=== PATIENT | female | born 1975 | race Two or more races ===

== ENCOUNTER 2020-02-02 17:13 | Inpatient (IN) | payer MEDICAID, OTHER, SELFPAY ==
[~2020-02-02] VITALS: Ht 162.6 cm; Wt 68.8 kg
[2020-02-03] MEDS ORDERED: levoFLOXacin 250 MG TAB PO ONE (01:45)
[2020-02-03 03:25] LABS: Basophils # (auto) 0 10 ^3/uL (0-0.2); Basophils % (auto) 0.2 % (0.0-2.0); Eosinophils # (auto) 0 10 ^3/uL (0-0.8); Hematocrit 45.4 % (36.0-46.0); Hemoglobin 15.3 g/dL (12.2-16.2); Lymphocytes # (auto) 0.7 10 ^3/uL (0.4-5.4); Lymphocytes % (auto) 11.4 % (10.0-50.0); Mean Corpuscular Hemoglobin 29.8 pg (28.0-32.0); Mean Corpuscular Hgb Conc. 33.8 g/dL (32.0-36.0); Mean Corpuscular Volume 88.2 fL (80.0-100.0); Monocytes # (auto) 0.6 10 ^3/uL (0-1.3); Monocytes % (auto) 9.2 % (0.0-12.0); Neutrophils % (auto) 79.2 % (37.0-80.0); Nucleated Red Blood Cells % 0.1 %; Platelet Count (auto) 272 10^3/uL (140-450); Red Blood Cells 5.15 10^6/uL (4.0-5.20); Red Cell Distribution Width 12.5 % (11.8-14.3); White Blood Cell 6.3 10^3/uL (4.4-10.8)
[2020-02-03 03:35] LABS: INR 0.98 (0.9-1.15); Partial Thromboplastin Time 29.7 sec (23.0-31.2)
[2020-02-03 03:43] LABS: Albumin 2.8 g/dL (3.4-5.0); Calcium 8.9 mg/dL (8.5-10.1); Potassium 4.1 mmol/L (3.5-5.1)
[2020-02-03 03:48] LABS: BUN/Creatinine Ratio 25.8; Bilirubin, Total 0.6 mg/dL (0.2-1.0); Total Protein 7.6 g/dL (6.4-8.2)
[2020-02-03] MEDS ORDERED: SODIUM CHLORIDE 0.9% 1,000 ML IV ONE (04:00)
[2020-02-03] MEDS ORDERED: InsuLIN REG 1unit/0.01ml Soln (100units/ml) IV ONE (04:00)
[2020-02-03] MEDS ORDERED: MORPHINE SULF INJ 2 MG/ML SYRINGE 1ML IV PRN (05:00)
[2020-02-03] MEDS ORDERED: NITROGLYCERIN 0.4 MG SL TAB SL PRN (05:00)
[2020-02-03 05:13] LABS: Magnesium 2.4 mg/dL (1.6-2.6)
[2020-02-03 05:36] LABS: CRP High Sensitivity 11.8 mg/dL (< 0.3)
[2020-02-03] MEDS: ALBUTEROL SULF HFA 90MCG INH 200DOSE IN SCH ×3 (06:00→22:00)
[2020-02-03] MEDS: ENOXAPARIN SOD 40 MG/0.4 ML SYRINGE SC SCH ×2 (09:31→22:40)
[2020-02-03] MEDS: ZINC SULFATE 220mg CAP or TAB PO SCH (09:31)
[2020-02-03] MEDS: ASCORBIC ACID 1,000 MG TAB PO SCH (09:31)
[2020-02-03] MEDS: DexAMETHasone SOD PHOS 10MG/1ML VIAL INJ IV SCH (09:31)
[2020-02-03] MEDS: FAMOTIDINE 20 MG TAB PO SCH ×2 (09:31→22:48)
[2020-02-03] MEDS: CHOLECALCIFEROL (VITD3) 2,000 UNIT CAP/TAB PO SCH (09:31)
[2020-02-03] MEDS ORDERED: DOXYCYCLINE 100MG/250ML 250 ML IV SCH (10:00)
[2020-02-03 12:36] LABS: Urine Bacteria MANY /hpf (None Seen); Urine Blood Negative /uL (Negative); Urine Mucus FEW (None Seen); Urine WBC 365 /hpf (0 - 5); Urine WBC Clumps PRESENT /hpf (None Seen)
[2020-02-03] MEDS ORDERED: DEXTROSE (50%) 50ML SYRG IV PRN (19:00)
[2020-02-03] MEDS ORDERED: REMDESIVIR PER PHARMACY IV SCH (19:15)
[2020-02-03] MEDS ORDERED: FUROSEMIDE 40 MG/4 ML VIAL IV ONE (21:30)
[2020-02-03] MEDS ORDERED: cefTRIAXone 1GM/50ML D5W 50 ML IV ONE (21:30)
[2020-02-04] VITALS (7 sets, daily range): BP systolic 98–120; BP diastolic 50–71
[2020-02-04] MEDS: ACCU-CHEK COMFORT CURVE STRIP VI SCH ×5 (00:06→23:33)
[2020-02-04] MEDS: InsuLIN REG 1unit/0.01ml Soln (100units/ml) SC SCH ×5 (00:20→23:34)
[2020-02-04] MEDS: INSULIN LANTUS (GLARGINE) 1 /0.01ml (100units/ml) SC SCH ×2 (00:21→21:46)
[2020-02-04] MEDS: ACETAMINOPHEN 325 MG TAB PO PRN ×2 (05:19→21:46)
[2020-02-04] MEDS: ALBUTEROL SULF HFA 90MCG INH 200DOSE IN SCH (06:12)
[2020-02-04 07:09] LABS: Basophils # (auto) 0 10 ^3/uL (0-0.2); Basophils % (auto) 0.1 % (0.0-2.0); Eosinophils # (auto) 0 10 ^3/uL (0-0.8); Hematocrit 41.7 % (36.0-46.0); Hemoglobin 13.9 g/dL (12.2-16.2); Lymphocytes # (auto) 0.9 10 ^3/uL (0.4-5.4); Mean Corpuscular Hemoglobin 29.3 pg (28.0-32.0); Mean Corpuscular Hgb Conc. 33.3 g/dL (32.0-36.0); Mean Corpuscular Volume 87.9 fL (80.0-100.0); Monocytes # (auto) 0.6 10 ^3/uL (0-1.3); Neutrophils # (auto) 8.6 10 ^3/uL (1.6-8.6); Neutrophils % (auto) 84.9 % (37.0-80.0); Nucleated Red Blood Cells % 0.1 %; Platelet Count (auto) 337 10^3/uL (140-450); Red Blood Cells 4.74 10^6/uL (4.0-5.20); Red Cell Distribution Width 12.3 % (11.8-14.3); White Blood Cell 10.1 10^3/uL (4.4-10.8)
[2020-02-04 07:34] LABS: Calcium 8.2 mg/dL (8.5-10.1); Potassium 3.6 mmol/L (3.5-5.1)
[2020-02-04 07:40] LABS: Albumin 2.4 g/dL (3.4-5.0); BUN/Creatinine Ratio 29.6; Bilirubin, Total 0.6 mg/dL (0.2-1.0); Total Protein 6.9 g/dL (6.4-8.2)
[2020-02-04] MEDS: ZINC SULFATE 220mg CAP or TAB PO SCH (09:54)
[2020-02-04] MEDS: DexAMETHasone SOD PHOS 10MG/1ML VIAL INJ IV SCH (09:54)
[2020-02-04] MEDS: FUROSEMIDE 40 MG/4 ML VIAL IV SCH (09:54)
[2020-02-04] MEDS: CHOLECALCIFEROL (VITD3) 2,000 UNIT CAP/TAB PO SCH (09:55)
[2020-02-04] MEDS: levoFLOXacin 250 MG TAB PO SCH (09:55)
[2020-02-04] MEDS: FAMOTIDINE 20 MG TAB PO SCH ×2 (09:55→21:46)
[2020-02-04] MEDS: ASCORBIC ACID 1,000 MG TAB PO SCH (09:55)
[2020-02-04] MEDS: ENOXAPARIN SOD 40 MG/0.4 ML SYRINGE SC SCH ×2 (09:55→21:46)
[2020-02-04] MEDS ORDERED: REMDESIVIR 200 MG in NS 210ml LOADING DOSE ADULT IV ONE (17:00)
[2020-02-04] MEDS: ALBUTEROL SULF HFA 90MCG INH 200DOSE IN PRN (21:26)
[2020-02-04] MEDS: cefTRIAXone 1GM/50ML D5W 50 ML IV SCH (21:45)
[2020-02-05 05:00] VITALS: BP 103/67
[2020-02-05] MEDS: InsuLIN REG 1unit/0.01ml Soln (100units/ml) SC SCH ×3 (05:53→17:37)
[2020-02-05] MEDS: ACCU-CHEK COMFORT CURVE STRIP VI SCH ×3 (05:53→17:36)
[2020-02-05 08:00] VITALS: BP 107/61
[2020-02-05] MEDS: ALBUTEROL SULF HFA 90MCG INH 200DOSE IN PRN (08:20)
[2020-02-05 08:21] VITALS: BP 107/61
[2020-02-05] MEDS: ZINC SULFATE 220mg CAP or TAB PO SCH (09:17)
[2020-02-05] MEDS: FUROSEMIDE 40 MG/4 ML VIAL IV SCH (09:17)
[2020-02-05] MEDS: levoFLOXacin 250 MG TAB PO SCH (09:17)
[2020-02-05] MEDS: DexAMETHasone SOD PHOS 10MG/1ML VIAL INJ IV SCH (09:17)
[2020-02-05] MEDS: CHOLECALCIFEROL (VITD3) 2,000 UNIT CAP/TAB PO SCH (09:18)
[2020-02-05] MEDS: ENOXAPARIN SOD 40 MG/0.4 ML SYRINGE SC SCH ×2 (09:18→22:25)
[2020-02-05] MEDS: ASCORBIC ACID 1,000 MG TAB PO SCH (09:18)
[2020-02-05] MEDS: FAMOTIDINE 20 MG TAB PO SCH ×2 (09:18→22:26)
[2020-02-05] MEDS ORDERED: POTASSIUM CHL 20 Meq TABLET PO ONE (09:30)
[2020-02-05] MEDS ORDERED: POTASSIUM CHL 20 Meq TABLET PO SCH (10:00)
[2020-02-05 12:30] VITALS: BP 111/64
[2020-02-05 17:00] VITALS: BP 101/64
[2020-02-05] MEDS: REMDESIVIR 100 MG in SODIUM CHL 0.9% 250 ML IV SCH (17:08)
[2020-02-05 22:00] VITALS: BP 107/66
[2020-02-05] MEDS: INSULIN LANTUS (GLARGINE) 1 /0.01ml (100units/ml) SC SCH (22:25)
[2020-02-05] MEDS: cefTRIAXone 1GM/50ML D5W 50 ML IV SCH (22:26)
[2020-02-06] MEDS: ACCU-CHEK COMFORT CURVE STRIP VI SCH ×4 (00:19→17:31)
[2020-02-06] MEDS: InsuLIN REG 1unit/0.01ml Soln (100units/ml) SC SCH ×4 (00:20→17:31)
[2020-02-06] MEDS: ALBUTEROL SULF HFA 90MCG INH 200DOSE IN PRN ×2 (01:29→17:02)
[2020-02-06 05:00] VITALS: BP 109/70
[2020-02-06 08:00] VITALS: BP 97/66
[2020-02-06 08:19] VITALS: BP 97/66
[2020-02-06] MEDS: DexAMETHasone SOD PHOS 10MG/1ML VIAL INJ IV SCH (10:11)
[2020-02-06] MEDS: POTASSIUM CHL 20 Meq TABLET PO SCH (10:12)
[2020-02-06] MEDS: ZINC SULFATE 220mg CAP or TAB PO SCH (10:12)
[2020-02-06] MEDS: FUROSEMIDE 40 MG/4 ML VIAL IV SCH (10:12)
[2020-02-06] MEDS: CHOLECALCIFEROL (VITD3) 2,000 UNIT CAP/TAB PO SCH (10:13)
[2020-02-06] MEDS: ENOXAPARIN SOD 40 MG/0.4 ML SYRINGE SC SCH ×2 (10:13→22:10)
[2020-02-06] MEDS: ASCORBIC ACID 1,000 MG TAB PO SCH (10:13)
[2020-02-06] MEDS: levoFLOXacin 250 MG TAB PO SCH (10:13)
[2020-02-06] MEDS: FAMOTIDINE 20 MG TAB PO SCH ×2 (12:04→22:10)
[2020-02-06 12:19] VITALS: BP 103/70
[2020-02-06] MEDS: REMDESIVIR 100 MG in SODIUM CHL 0.9% 250 ML IV SCH (17:18)
[2020-02-06 21:54] VITALS: BP 105/58
[2020-02-06] MEDS: INSULIN LANTUS (GLARGINE) 1 /0.01ml (100units/ml) SC SCH (22:11)
[2020-02-07] MEDS: ACCU-CHEK COMFORT CURVE STRIP VI SCH ×4 (00:27→17:45)
[2020-02-07] MEDS: InsuLIN REG 1unit/0.01ml Soln (100units/ml) SC SCH ×4 (00:28→18:03)
[2020-02-07] MEDS: TEMAZEPAM 15 MG CAP PO PRN (00:31)
[2020-02-07 05:00] VITALS: BP 124/67
[2020-02-07 07:21] LABS: Basophils # (auto) 0 10 ^3/uL (0-0.2); Eosinophils # (auto) 0.1 10 ^3/uL (0-0.8)
[2020-02-07 07:25] LABS: Basophils % (auto) 0.2 % (0.0-2.0); Eosinophils % (auto) 0.8 % (0.0-7.0); Hematocrit 44.1 % (36.0-46.0); Lymphocytes # (auto) 1.2 10 ^3/uL (0.4-5.4); Lymphocytes % (auto) 11.4 % (10.0-50.0); Mean Corpuscular Hemoglobin 30.1 pg (28.0-32.0); Mean Corpuscular Hgb Conc. 33.9 g/dL (32.0-36.0); Mean Corpuscular Volume 88.8 fL (80.0-100.0); Monocytes # (auto) 1.2 10 ^3/uL (0-1.3); Monocytes % (auto) 11.2 % (0.0-12.0); Neutrophils # (auto) 8.1 10 ^3/uL (1.6-8.6); Neutrophils % (auto) 76.4 % (37.0-80.0); Nucleated Red Blood Cells % 0.1 %; Platelet Count (auto) 496 10^3/uL (140-450); Red Blood Cells 4.97 10^6/uL (4.0-5.20); Red Cell Distribution Width 12.5 % (11.8-14.3); White Blood Cell 10.6 10^3/uL (4.4-10.8)
[2020-02-07 07:32] LABS: Potassium 3.5 mmol/L (3.5-5.1)
[2020-02-07 07:50] LABS: Albumin 2.1 g/dL (3.4-5.0); BUN/Creatinine Ratio 22.7; Bilirubin, Total 0.6 mg/dL (0.2-1.0); CRP High Sensitivity 4.27 mg/dL (< 0.3); Calcium 8.2 mg/dL (8.5-10.1); Total Protein 6.3 g/dL (6.4-8.2)
[2020-02-07 09:00] VITALS: BP 111/64
[2020-02-07] MEDS: DexAMETHasone SOD PHOS 10MG/1ML VIAL INJ IV SCH (10:45)
[2020-02-07] MEDS: POTASSIUM CHL 20 Meq TABLET PO SCH (10:45)
[2020-02-07] MEDS: CHOLECALCIFEROL (VITD3) 2,000 UNIT CAP/TAB PO SCH (10:46)
[2020-02-07] MEDS: FAMOTIDINE 20 MG TAB PO SCH ×2 (10:46→22:54)
[2020-02-07] MEDS: FUROSEMIDE 40 MG/4 ML VIAL IV SCH (10:46)
[2020-02-07] MEDS: ENOXAPARIN SOD 40 MG/0.4 ML SYRINGE SC SCH ×2 (10:46→22:55)
[2020-02-07] MEDS: ZINC SULFATE 220mg CAP or TAB PO SCH (10:46)
[2020-02-07] MEDS: levoFLOXacin 250 MG TAB PO SCH (10:46)
[2020-02-07] MEDS: ASCORBIC ACID 1,000 MG TAB PO SCH (10:46)
[2020-02-07 13:00] VITALS: BP 100/61
[2020-02-07 17:00] VITALS: BP 116/69
[2020-02-07] MEDS: REMDESIVIR 100 MG in SODIUM CHL 0.9% 250 ML IV SCH (17:00)
[2020-02-07] MEDS: ALBUTEROL SULF HFA 90MCG INH 200DOSE IN PRN (21:52)
[2020-02-07 22:00] VITALS: BP 107/67
[2020-02-07] MEDS: INSULIN LANTUS (GLARGINE) 1 /0.01ml (100units/ml) SC SCH (22:55)
[2020-02-08] VITALS (8 sets, daily range): BP systolic 92–117; BP diastolic 52–72
[2020-02-08] MEDS: ACCU-CHEK COMFORT CURVE STRIP VI SCH ×5 (00:46→23:54)
[2020-02-08] MEDS: InsuLIN REG 1unit/0.01ml Soln (100units/ml) SC SCH ×5 (00:47→23:57)
[2020-02-08] MEDS ORDERED: LORazepam 2MG/ML-1ML VIAL IV ONE (05:15)
[2020-02-08] MEDS: ALBUTEROL SULF HFA 90MCG INH 200DOSE IN PRN ×2 (07:07→21:32)
[2020-02-08 07:20] LABS: Potassium 3.5 mmol/L (3.5-5.1)
[2020-02-08 07:27] LABS: Bilirubin, Total 0.8 mg/dL (0.2-1.0); Calcium 8.3 mg/dL (8.5-10.1); Total Protein 6.3 g/dL (6.4-8.2)
[2020-02-08] MEDS: ENOXAPARIN SOD 40 MG/0.4 ML SYRINGE SC SCH ×2 (10:00→22:15)
[2020-02-08] MEDS: ZINC SULFATE 220mg CAP or TAB PO SCH (10:43)
[2020-02-08] MEDS: FUROSEMIDE 40 MG/4 ML VIAL IV SCH (10:43)
[2020-02-08] MEDS: DexAMETHasone SOD PHOS 10MG/1ML VIAL INJ IV SCH (10:43)
[2020-02-08] MEDS: POTASSIUM CHL 20 Meq TABLET PO SCH (10:44)
[2020-02-08] MEDS: FAMOTIDINE 20 MG TAB PO SCH ×2 (10:44→22:14)
[2020-02-08] MEDS: levoFLOXacin 250 MG TAB PO SCH (10:44)
[2020-02-08] MEDS: ASCORBIC ACID 1,000 MG TAB PO SCH (10:44)
[2020-02-08] MEDS: CHOLECALCIFEROL (VITD3) 2,000 UNIT CAP/TAB PO SCH (10:44)
[2020-02-08] MEDS: REMDESIVIR 100 MG in SODIUM CHL 0.9% 250 ML IV SCH (18:45)
[2020-02-08] MEDS: INSULIN LANTUS (GLARGINE) 1 /0.01ml (100units/ml) SC SCH (22:15)
[2020-02-09 05:00] VITALS: BP 123/74
[2020-02-09] MEDS: InsuLIN REG 1unit/0.01ml Soln (100units/ml) SC SCH ×4 (05:56→23:44)
[2020-02-09] MEDS: ACCU-CHEK COMFORT CURVE STRIP VI SCH ×4 (05:56→23:41)
[2020-02-09] MEDS: ALBUTEROL SULF HFA 90MCG INH 200DOSE IN PRN ×2 (08:16→23:22)
[2020-02-09 09:00] VITALS: BP 132/73
[2020-02-09] MEDS: DexAMETHasone SOD PHOS 10MG/1ML VIAL INJ IV SCH (09:14)
[2020-02-09] MEDS: FUROSEMIDE 40 MG/4 ML VIAL IV SCH (09:15)
[2020-02-09] MEDS: POTASSIUM CHL 20 Meq TABLET PO SCH (09:15)
[2020-02-09] MEDS: levoFLOXacin 250 MG TAB PO SCH (09:15)
[2020-02-09] MEDS: ZINC SULFATE 220mg CAP or TAB PO SCH (09:15)
[2020-02-09] MEDS: FAMOTIDINE 20 MG TAB PO SCH ×2 (09:15→22:13)
[2020-02-09] MEDS: ASCORBIC ACID 1,000 MG TAB PO SCH (09:16)
[2020-02-09] MEDS: ENOXAPARIN SOD 40 MG/0.4 ML SYRINGE SC SCH ×2 (09:16→22:13)
[2020-02-09] MEDS: CHOLECALCIFEROL (VITD3) 2,000 UNIT CAP/TAB PO SCH (09:16)
[2020-02-09] MEDS: guaiFENesin-DM 100/10mg/5ml SYR PO PRN (12:30)
[2020-02-09 13:00] VITALS: BP 93/60
[2020-02-09] MEDS ORDERED: IOHEXOL 350 MG/ML 100ML IJ ONE (13:18)
[2020-02-09 17:00] VITALS: BP 102/64
[2020-02-09 22:14] VITALS: BP 96/59
[2020-02-09] MEDS: BUDESONIDE (INHALATION) 180 MCG IH IN SCH (23:22)
[2020-02-10] MEDS: guaiFENesin-DM 100/10mg/5ml SYR PO PRN (04:42)
[2020-02-10 05:30] VITALS: BP 104/69
[2020-02-10] MEDS: InsuLIN REG 1unit/0.01ml Soln (100units/ml) SC SCH ×3 (05:56→17:55)
[2020-02-10] MEDS: ACCU-CHEK COMFORT CURVE STRIP VI SCH ×4 (05:56→23:59)
[2020-02-10 07:43] LABS: Basophils # (auto) 0 10 ^3/uL (0-0.2); Lymphocytes # (auto) 1.2 10 ^3/uL (0.4-5.4)
[2020-02-10 07:46] LABS: Basophils % (auto) 0.3 % (0.0-2.0); Eosinophils # (auto) 0.2 10 ^3/uL (0-0.8); Eosinophils % (auto) 1.6 % (0.0-7.0); Hematocrit 45.2 % (36.0-46.0); Hemoglobin 14.8 g/dL (12.2-16.2); Mean Corpuscular Hemoglobin 29.1 pg (28.0-32.0); Mean Corpuscular Hgb Conc. 32.6 g/dL (32.0-36.0); Mean Corpuscular Volume 89.1 fL (80.0-100.0); Neutrophils # (auto) 7.5 10 ^3/uL (1.6-8.6); Neutrophils % (auto) 76.1 % (37.0-80.0); Red Blood Cells 5.08 10^6/uL (4.0-5.20); Red Cell Distribution Width 12.6 % (11.8-14.3); White Blood Cell 9.9 10^3/uL (4.4-10.8)
[2020-02-10 07:53] LABS: Calcium 8.6 mg/dL (8.5-10.1); Potassium 3.8 mmol/L (3.5-5.1)
[2020-02-10 08:00] LABS: Albumin 2.2 g/dL (3.4-5.0); BUN/Creatinine Ratio 33.3; Bilirubin, Total 0.8 mg/dL (0.2-1.0)
[2020-02-10 08:55] LABS: Platelet Count (auto) 661 10^3/uL (140-450)
[2020-02-10 09:00] VITALS: BP 95/60
[2020-02-10] MEDS: ENOXAPARIN SOD 40 MG/0.4 ML SYRINGE SC SCH ×2 (10:00→21:53)
[2020-02-10] MEDS: INSULIN LANTUS (GLARGINE) 1 /0.01ml (100units/ml) SC SCH (10:00)
[2020-02-10] MEDS: BUDESONIDE (INHALATION) 180 MCG IH IN SCH ×2 (10:00→20:49)
[2020-02-10] MEDS: FAMOTIDINE 20 MG TAB PO SCH ×2 (10:00→21:53)
[2020-02-10] MEDS: FUROSEMIDE 40 MG/4 ML VIAL IV SCH (10:00)
[2020-02-10] MEDS: POTASSIUM CHL 20 Meq TABLET PO SCH (10:00)
[2020-02-10] MEDS: DexAMETHasone SOD PHOS 10MG/1ML VIAL INJ IV SCH (10:47)
[2020-02-10] MEDS: levoFLOXacin 750MG 150 ML IV SCH (10:48)
[2020-02-10] MEDS: ZINC SULFATE 220mg CAP or TAB PO SCH (10:48)
[2020-02-10] MEDS: ASCORBIC ACID 1,000 MG TAB PO SCH (10:49)
[2020-02-10] MEDS: CHOLECALCIFEROL (VITD3) 2,000 UNIT CAP/TAB PO SCH (10:49)
[2020-02-10] MEDS: guaiFENesin-CODEINE Liq 5 ML UD PO PRN (12:00)
[2020-02-10 12:59] VITALS: BP 105/67
[2020-02-10 17:00] VITALS: BP 95/61
[2020-02-10] MEDS: ALBUTEROL SULF HFA 90MCG INH 200DOSE IN PRN (20:49)
[2020-02-10 22:00] VITALS: BP 94/61
[2020-02-11 05:00] VITALS: BP 95/78
[2020-02-11] MEDS: InsuLIN REG 1unit/0.01ml Soln (100units/ml) SC SCH ×4 (06:00→17:44)
[2020-02-11] MEDS: ACCU-CHEK COMFORT CURVE STRIP VI SCH ×3 (06:29→17:42)
[2020-02-11] MEDS: guaiFENesin-CODEINE Liq 5 ML UD PO PRN ×3 (06:34→22:11)
[2020-02-11 09:00] VITALS: BP 97/61
[2020-02-11] MEDS: INSULIN LANTUS (GLARGINE) 1 /0.01ml (100units/ml) SC SCH (10:00)
[2020-02-11] MEDS: FAMOTIDINE 20 MG TAB PO SCH ×2 (10:00→22:05)
[2020-02-11] MEDS: ALBUTEROL SULF HFA 90MCG INH 200DOSE IN PRN (10:04)
[2020-02-11] MEDS: BUDESONIDE (INHALATION) 180 MCG IH IN SCH ×2 (10:04→21:40)
[2020-02-11] MEDS: DexAMETHasone SOD PHOS 10MG/1ML VIAL INJ IV SCH (10:55)
[2020-02-11] MEDS: levoFLOXacin 750MG 150 ML IV SCH (10:55)
[2020-02-11] MEDS: ASCORBIC ACID 1,000 MG TAB PO SCH (10:56)
[2020-02-11] MEDS: CHOLECALCIFEROL (VITD3) 2,000 UNIT CAP/TAB PO SCH (10:56)
[2020-02-11] MEDS: ENOXAPARIN SOD 40 MG/0.4 ML SYRINGE SC SCH ×2 (10:56→22:05)
[2020-02-11] MEDS: ZINC SULFATE 220mg CAP or TAB PO SCH (10:56)
[2020-02-11 13:00] VITALS: BP 104/61
[2020-02-11 17:00] VITALS: BP 107/62
[2020-02-11 21:02] VITALS: BP 118/79
[2020-02-12] MEDS: ACCU-CHEK COMFORT CURVE STRIP VI SCH ×5 (00:11→23:05)
[2020-02-12] MEDS: InsuLIN REG 1unit/0.01ml Soln (100units/ml) SC SCH ×5 (00:12→23:07)
[2020-02-12 05:43] VITALS: BP 99/62
[2020-02-12] MEDS: ASCORBIC ACID 1,000 MG TAB PO SCH (09:48)
[2020-02-12] MEDS: FAMOTIDINE 20 MG TAB PO SCH ×2 (09:48→23:05)
[2020-02-12] MEDS: ZINC SULFATE 220mg CAP or TAB PO SCH (09:48)
[2020-02-12] MEDS: DexAMETHasone SOD PHOS 10MG/1ML VIAL INJ IV SCH (09:48)
[2020-02-12] MEDS: levoFLOXacin 750MG 150 ML IV SCH (09:48)
[2020-02-12] MEDS: CHOLECALCIFEROL (VITD3) 2,000 UNIT CAP/TAB PO SCH (09:49)
[2020-02-12] MEDS: ENOXAPARIN SOD 40 MG/0.4 ML SYRINGE SC SCH (09:49)
[2020-02-12] MEDS: BUDESONIDE (INHALATION) 180 MCG IH IN SCH ×2 (10:00→21:00)
[2020-02-12] MEDS: INSULIN LANTUS (GLARGINE) 1 /0.01ml (100units/ml) SC SCH (13:14)
[2020-02-12] MEDS: ALBUTEROL SULF HFA 90MCG INH 200DOSE IN PRN (17:09)
[2020-02-12] MEDS: guaiFENesin-CODEINE Liq 5 ML UD PO PRN (20:09)
[2020-02-12 22:00] VITALS: BP 102/68
[2020-02-13 05:00] VITALS: BP 103/76
[2020-02-13] MEDS: InsuLIN REG 1unit/0.01ml Soln (100units/ml) SC SCH ×3 (06:00→18:26)
[2020-02-13] MEDS: ACCU-CHEK COMFORT CURVE STRIP VI SCH ×3 (06:57→18:23)
[2020-02-13 09:00] VITALS: BP 101/64
[2020-02-13] MEDS: guaiFENesin-CODEINE Liq 5 ML UD PO PRN ×2 (09:15→17:32)
[2020-02-13] MEDS: DexAMETHasone SOD PHOS 10MG/1ML VIAL INJ IV SCH (09:44)
[2020-02-13] MEDS: levoFLOXacin 750MG 150 ML IV SCH (09:45)
[2020-02-13] MEDS: CHOLECALCIFEROL (VITD3) 2,000 UNIT CAP/TAB PO SCH (09:45)
[2020-02-13] MEDS: FAMOTIDINE 20 MG TAB PO SCH ×2 (09:45→21:55)
[2020-02-13] MEDS: ENOXAPARIN SOD 40 MG/0.4 ML SYRINGE SC SCH (09:45)
[2020-02-13] MEDS: INSULIN LANTUS (GLARGINE) 1 /0.01ml (100units/ml) SC SCH (09:46)
[2020-02-13] MEDS: BUDESONIDE (INHALATION) 180 MCG IH IN SCH ×2 (10:00→21:51)
[2020-02-13] MEDS: ALBUTEROL SULF HFA 90MCG INH 200DOSE IN PRN ×2 (12:52→21:51)
[2020-02-13 13:00] VITALS: BP 109/72
[2020-02-13 17:17] VITALS: BP 103/68
[2020-02-13] MEDS ORDERED: FUROSEMIDE 20 MG/2 ML VIAL IV ONE (17:45)
[2020-02-13 21:45] VITALS: BP 109/70
[2020-02-14] MEDS: ACCU-CHEK COMFORT CURVE STRIP VI SCH ×4 (00:06→18:13)
[2020-02-14] MEDS: InsuLIN REG 1unit/0.01ml Soln (100units/ml) SC SCH ×4 (00:11→18:14)
[2020-02-14 05:00] VITALS: BP 115/76
[2020-02-14 09:00] VITALS: BP 101/60
[2020-02-14] MEDS: DexAMETHasone SOD PHOS 10MG/1ML VIAL INJ IV SCH (09:25)
[2020-02-14] MEDS: levoFLOXacin 750MG 150 ML IV SCH (09:25)
[2020-02-14] MEDS: ENOXAPARIN SOD 40 MG/0.4 ML SYRINGE SC SCH (09:26)
[2020-02-14] MEDS: CHOLECALCIFEROL (VITD3) 2,000 UNIT CAP/TAB PO SCH (09:26)
[2020-02-14] MEDS: FAMOTIDINE 20 MG TAB PO SCH ×2 (09:26→21:15)
[2020-02-14] MEDS: INSULIN LANTUS (GLARGINE) 1 /0.01ml (100units/ml) SC SCH (09:26)
[2020-02-14] MEDS: FUROSEMIDE 20 MG/2 ML VIAL IV SCH (09:27)
[2020-02-14] MEDS: BUDESONIDE (INHALATION) 180 MCG IH IN SCH ×2 (09:56→20:54)
[2020-02-14 11:22] LABS: BUN/Creatinine Ratio 30.2; Calcium 8.7 mg/dL (8.5-10.1); Potassium 4.4 mmol/L (3.5-5.1)
[2020-02-14] MEDS: guaiFENesin-CODEINE Liq 5 ML UD PO PRN (12:10)
[2020-02-14 13:00] VITALS: BP 94/57
[2020-02-14 17:00] VITALS: BP 102/76
[2020-02-14] MEDS: ALBUTEROL SULF HFA 90MCG INH 200DOSE IN PRN (20:54)
[2020-02-14 22:00] VITALS: BP 97/65
[2020-02-15] MEDS: guaiFENesin-CODEINE Liq 5 ML UD PO PRN ×3 (02:40→23:49)
[2020-02-15 05:00] VITALS: BP 108/61
[2020-02-15] MEDS: InsuLIN REG 1unit/0.01ml Soln (100units/ml) SC SCH ×5 (06:00→23:49)
[2020-02-15] MEDS: ACCU-CHEK COMFORT CURVE STRIP VI SCH ×5 (06:06→23:44)
[2020-02-15] MEDS: HYDROcodone-ACET 5/325MG TAB PO PRN ×2 (06:21→16:56)
[2020-02-15 09:00] VITALS: BP 103/77
[2020-02-15] MEDS: INSULIN LANTUS (GLARGINE) 1 /0.01ml (100units/ml) SC SCH (10:00)
[2020-02-15] MEDS: ENOXAPARIN SOD 40 MG/0.4 ML SYRINGE SC SCH (10:00)
[2020-02-15] MEDS: FAMOTIDINE 20 MG TAB PO SCH ×2 (10:00→23:44)
[2020-02-15] MEDS: CHOLECALCIFEROL (VITD3) 2,000 UNIT CAP/TAB PO SCH (10:00)
[2020-02-15] MEDS: BUDESONIDE (INHALATION) 180 MCG IH IN SCH ×2 (10:00→22:00)
[2020-02-15] MEDS: FUROSEMIDE 20 MG/2 ML VIAL IV SCH (10:00)
[2020-02-15 20:00] VITALS: BP 122/73
[2020-02-15 21:50] VITALS: BP 122/73
[2020-02-15] MEDS: ALBUTEROL SULF HFA 90MCG INH 200DOSE IN PRN (23:44)
[2020-02-16] MEDS: LORazepam 0.5 MG TAB PO PRN ×2 (00:48→09:22)
[2020-02-16 05:00] VITALS: BP 103/69
[2020-02-16] MEDS: InsuLIN REG 1unit/0.01ml Soln (100units/ml) SC SCH ×3 (06:00→18:29)
[2020-02-16] MEDS: ACCU-CHEK COMFORT CURVE STRIP VI SCH ×3 (06:26→18:10)
[2020-02-16 09:00] VITALS: BP 94/58
[2020-02-16] MEDS: ENOXAPARIN SOD 40 MG/0.4 ML SYRINGE SC SCH ×2 (10:00→11:00)
[2020-02-16] MEDS: BUDESONIDE (INHALATION) 180 MCG IH IN SCH ×2 (10:00→21:25)
[2020-02-16] MEDS: FUROSEMIDE 20 MG/2 ML VIAL IV SCH (10:30)
[2020-02-16] MEDS: FAMOTIDINE 20 MG TAB PO SCH ×2 (10:33→21:39)
[2020-02-16] MEDS: CHOLECALCIFEROL (VITD3) 2,000 UNIT CAP/TAB PO SCH (10:33)
[2020-02-16] MEDS: INSULIN LANTUS (GLARGINE) 1 /0.01ml (100units/ml) SC SCH (10:34)
[2020-02-16] MEDS: ALBUTEROL SULF HFA 90MCG INH 200DOSE IN PRN ×2 (12:51→21:25)
[2020-02-16 13:00] VITALS: BP 96/58
[2020-02-16] MEDS ORDERED: METOPROLOL SUCCINATE XL 50 MG TAB PO ONE (13:30)
[2020-02-16] MEDS: guaiFENesin-CODEINE Liq 5 ML UD PO PRN ×2 (13:34→21:40)
[2020-02-16 14:47] LABS: Eosinophils # (auto) 0.2 10 ^3/uL (0-0.8); Hemoglobin 15.7 g/dL (12.2-16.2); Lymphocytes # (auto) 1.4 10 ^3/uL (0.4-5.4); Monocytes # (auto) 1.2 10 ^3/uL (0-1.3); White Blood Cell 13.4 10^3/uL (4.4-10.8)
[2020-02-16 14:48] LABS: Basophils # (auto) 0.1 10 ^3/uL (0-0.2); Basophils % (auto) 0.9 % (0.0-2.0); Eosinophils % (auto) 1.6 % (0.0-7.0); Hematocrit 47.6 % (36.0-46.0); Lymphocytes % (auto) 10.4 % (10.0-50.0); Mean Corpuscular Hemoglobin 29.4 pg (28.0-32.0); Mean Corpuscular Volume 89.2 fL (80.0-100.0); Neutrophils # (auto) 10.4 10 ^3/uL (1.6-8.6); Neutrophils % (auto) 78.1 % (37.0-80.0); Red Blood Cells 5.34 10^6/uL (4.0-5.20); Red Cell Distribution Width 12.8 % (11.8-14.3)
[2020-02-16 14:53] LABS: Platelet Count (auto) 761 10^3/uL (140-450)
[2020-02-16 15:07] LABS: Albumin 2.5 g/dL (3.4-5.0); Anion Gap 7 (5-15); Blood Urea Nitrogen 12 mg/dL (7-18); Calcium 8.7 mg/dL (8.5-10.1); Carbon Dioxide 31 mmol/L (21-32); Chloride 98 mmol/L (98-107); Glucose 170 mg/dL (74-106); Potassium 3.6 mmol/L (3.5-5.1); Sodium 136 mmol/L (136-145)
[2020-02-16 15:10] LABS: Alanine Aminotransferase 32 U/L (13-56); Alkaline Phosphatase 173 U/L (45-117); Aspartate Aminotransferase 26 U/L (15-37); BUN/Creatinine Ratio 20.7; GFR African American 145 mL/min; GFR Non-African American 119 mL/min; Total Protein 7.5 g/dL (6.4-8.2)
[2020-02-16 15:16] LABS: Free T3 2.83 pg/mL (2.3-4.2); Free T4 (Free Thyroxine) 1.44 ng/dL (0.89-1.76)
[2020-02-16] MEDS ORDERED: VANCOMYCIN PER PHARMACY 0 MG IV SCH (16:30)
[2020-02-16] MEDS ORDERED: DEXTROSE (50%) 50ML SYRG IV PRN (16:30)
[2020-02-16 17:00] VITALS: BP 94/63
[2020-02-16] MEDS ORDERED: VANCOMYCIN 1GM/250ML 250 ML IV ONE (17:30)
[2020-02-16] MEDS ORDERED: dilTIAZem 25 MG/5 ML VIAL IV ONE (18:30)
[2020-02-16] MEDS: PIPERACILLIN-TAZOB 3.375GM 100 ML IV SCH (19:55)
[2020-02-16 20:00] VITALS: BP 102/61
[2020-02-16] MEDS: TEMAZEPAM 15 MG CAP PO PRN (21:39)
[2020-02-16] MEDS: ENOXAPARIN SOD 60 MG/0.6 ML SYRINGE SC SCH (21:39)
[2020-02-16 22:00] VITALS: BP 102/67
[2020-02-17] VITALS (42 sets, daily range): BP systolic 76–152; BP diastolic 52–96
[2020-02-17] MEDS: PIPERACILLIN-TAZOB 3.375GM 100 ML IV SCH ×4 (00:30→17:31)
[2020-02-17] MEDS: ACCU-CHEK COMFORT CURVE STRIP VI SCH ×4 (00:32→17:34)
[2020-02-17] MEDS: InsuLIN REG 1unit/0.01ml Soln (100units/ml) SC SCH ×4 (00:32→17:34)
[2020-02-17] MEDS: LORazepam 0.5 MG TAB PO PRN (01:20)
[2020-02-17] MEDS: VANCOMYCIN 1GM/250ML 250 ML IV SCH ×2 (05:18→16:33)
[2020-02-17] MEDS ORDERED: dilTIAZem 25 MG/5 ML VIAL IV ONE ×2 (06:30→06:33)
[2020-02-17] MEDS ORDERED: LORazepam 0.5 MG TAB PO ONE (06:30)
[2020-02-17 07:11] LABS: Basophils # (auto) 0 10 ^3/uL (0-0.2); Basophils % (auto) 0.3 % (0.0-2.0); Eosinophils # (auto) 0.1 10 ^3/uL (0-0.8); Hemoglobin 16.5 g/dL (12.2-16.2); Lymphocytes # (auto) 1.1 10 ^3/uL (0.4-5.4); Nucleated Red Blood Cells % 0.1 %; Red Cell Distribution Width 12.9 % (11.8-14.3)
[2020-02-17 07:12] LABS: Albumin 2.4 g/dL (3.4-5.0); Bilirubin, Total 1.8 mg/dL (0.2-1.0); Total Protein 7.9 g/dL (6.4-8.2)
[2020-02-17 07:20] LABS: Eosinophils % (auto) 0.7 % (0.0-7.0); Hematocrit 50.6 % (36.0-46.0); Lymphocytes % (auto) 6.4 % (10.0-50.0); Mean Corpuscular Hemoglobin 29.2 pg (28.0-32.0); Mean Corpuscular Hgb Conc. 32.6 g/dL (32.0-36.0); Mean Corpuscular Volume 89.5 fL (80.0-100.0); Monocytes # (auto) 1.7 10 ^3/uL (0-1.3); Monocytes % (auto) 9.7 % (0.0-12.0); Neutrophils # (auto) 14.5 10 ^3/uL (1.6-8.6); Neutrophils % (auto) 82.9 % (37.0-80.0); Platelet Count (auto) 729 10^3/uL (140-450); Red Blood Cells 5.66 10^6/uL (4.0-5.20); White Blood Cell 17.5 10^3/uL (4.4-10.8)
[2020-02-17] MEDS: ALBUTEROL SULF 2.5 MG/0.5ML(0.5%) NEB SOLN NEB SCH ×3 (07:39→19:23)
[2020-02-17] MEDS: BUDESONIDE (INHALATION) 0.5 MG/2 ML NEB NEB SCH ×2 (07:39→19:23)
[2020-02-17] MEDS ORDERED: LORazepam 2MG/ML-1ML VIAL IV PRN ×2 (08:45→09:45)
[2020-02-17] MEDS: CHOLECALCIFEROL (VITD3) 2,000 UNIT CAP/TAB PO SCH (08:59)
[2020-02-17] MEDS: FUROSEMIDE 20 MG/2 ML VIAL IV SCH (08:59)
[2020-02-17] MEDS: FAMOTIDINE 20 MG TAB PO SCH (08:59)
[2020-02-17] MEDS: ENOXAPARIN SOD 60 MG/0.6 ML SYRINGE SC SCH ×2 (09:00→22:00)
[2020-02-17] MEDS: INSULIN LANTUS (GLARGINE) 1 /0.01ml (100units/ml) SC SCH ×2 (09:01→22:00)
[2020-02-17] MEDS ORDERED: SUCCINYLCHOLINE CHLORIDE 20 MG/ML 10ML VIAL IV ONE ×2 (09:20→11:00)
[2020-02-17] MEDS ORDERED: ETOMIDATE (2MG/ML) 20ML VIAL IV ONE ×2 (09:20→11:00)
[2020-02-17] MEDS ORDERED: ROCURONIUM 10MG/ML 10ML VIAL IV ONE (09:20)
[2020-02-17] MEDS ORDERED: MIDAZOLAM DRIP 50 mg/50mL 50 ML IV ONE (09:23)
[2020-02-17] MEDS ORDERED: MIDAZOLAM HCL 5 MG/ML-1ML VIAL ONE ×2 (09:24→10:20)
[2020-02-17] MEDS ORDERED: SODIUM CHLORIDE 0.9% 500 ML IV ONE ×2 (09:45→11:45)
[2020-02-17] MEDS: MIDAZOLAM DRIP 50 mg/50mL 50 ML IV SCH ×5 (09:45→21:52)
[2020-02-17] MEDS ORDERED: MORPHINE SULFATE 4 MG/ML SYR/VIAL IV PRN (09:45)
[2020-02-17] MEDS ORDERED: INSULIN LANTUS (GLARGINE) 1 /0.01ml (100units/ml) SC SCH (10:00)
[2020-02-17] MEDS ORDERED: IPRATROPIUM BROM 0.5 MG/2.5ML INH SOL NEB SCH ×2 (10:00)
[2020-02-17] MEDS ORDERED: PANTOPRAZOLE 40 MG/10 ML VIAL INJ IV SCH (10:00)
[2020-02-17] MEDS ORDERED: fentaNYL Drip 2500mCg/250mlNS 250 ML IV ONE (10:03)
[2020-02-17] MEDS: fentaNYL Drip 2500mCg/250mlNS 250 ML IV SCH ×2 (10:15→21:53)
[2020-02-17] MEDS ORDERED: MIDAZOLAM HCL 5 MG/ML-1ML VIAL IV ONE ×2 (11:15)
[2020-02-17] MEDS ORDERED: PANTOPRAZOLE 40 MG/10 ML VIAL INJ IV ONE (11:45)
[2020-02-17] MEDS: NOREPINEPHRINE 8 MG/250ML KIT 250 ML IV SCH (13:20)
[2020-02-17] MEDS ORDERED: ACETAMINOPHEN 650 mg PER 20.3 mL UD PO ONE (14:45)
[2020-02-17] MEDS ORDERED: diphenhdrAMINE HCL 50 MG/1 ML VL IV ONE (14:45)
[2020-02-17] MEDS ORDERED: methylPREDNISolone SOD SUCC 40 MG/ML VL IV ONE (14:45)
[2020-02-17] MEDS ORDERED: TOCILIZUMAB 400 MG in SODIUM CHL 0.9% 80 ML IV ONE (15:00)
[2020-02-17] MEDS: ALBUMIN 25% 100 ML IV SCH ×2 (17:00→23:30)
[2020-02-17] MEDS ORDERED: PROPOFOL 100 ML IV ONE (19:02)
[2020-02-17] MEDS: PROPOFOL 100 ML IV SCH (19:45)
[2020-02-17] MEDS: METOCLOPRAMIDE HCL 5MG/ml INJ 2ml VIAL IV SCH (22:00)
[2020-02-17] MEDS: IPRATROPIUM BROM 0.5 MG/2.5ML INH SOL NEB SCH (22:37)
[2020-02-18] VITALS (99 sets, daily range): BP systolic 87–122; BP diastolic 54–88
[2020-02-18] MEDS: ACCU-CHEK COMFORT CURVE STRIP VI SCH ×4 (00:22→17:30)
[2020-02-18] MEDS: PIPERACILLIN-TAZOB 3.375GM 100 ML IV SCH ×4 (00:22→17:26)
[2020-02-18] MEDS: InsuLIN REG 1unit/0.01ml Soln (100units/ml) SC SCH ×4 (00:25→17:27)
[2020-02-18] MEDS: MIDAZOLAM DRIP 50 mg/50mL 50 ML IV SCH ×5 (00:52→20:00)
[2020-02-18] MEDS: VANCOMYCIN 1GM/250ML 250 ML IV SCH ×3 (05:00→21:19)
[2020-02-18] MEDS: METOCLOPRAMIDE HCL 5MG/ml INJ 2ml VIAL IV SCH ×3 (05:44→22:00)
[2020-02-18] MEDS: ALBUTEROL SULF 2.5 MG/0.5ML(0.5%) NEB SOLN NEB SCH ×3 (07:38→21:42)
[2020-02-18] MEDS: IPRATROPIUM BROM 0.5 MG/2.5ML INH SOL NEB SCH ×3 (07:38→21:42)
[2020-02-18] MEDS: BUDESONIDE (INHALATION) 0.5 MG/2 ML NEB NEB SCH ×2 (07:38→21:42)
[2020-02-18] MEDS: ALBUMIN 25% 100 ML IV SCH (08:00)
[2020-02-18] MEDS ORDERED: diphenhdrAMINE HCL 50 MG/1 ML VL IV ONE (08:45)
[2020-02-18] MEDS ORDERED: methylPREDNISolone SOD SUCC 40 MG/ML VL IV ONE (08:45)
[2020-02-18] MEDS ORDERED: ACETAMINOPHEN 650 mg PER 20.3 mL UD PO ONE (08:45)
[2020-02-18] MEDS ORDERED: TOCILIZUMAB 400 MG in SODIUM CHL 0.9% 80 ML IV ONE (09:00)
[2020-02-18] MEDS: NOREPINEPHRINE 8 MG/250ML KIT 250 ML IV SCH ×2 (09:19→22:12)
[2020-02-18] MEDS: PANTOPRAZOLE 40 MG/10 ML VIAL INJ IV SCH (09:23)
[2020-02-18] MEDS: CHOLECALCIFEROL (VITD3) 2,000 UNIT CAP/TAB PO SCH (09:25)
[2020-02-18] MEDS: ENOXAPARIN SOD 60 MG/0.6 ML SYRINGE SC SCH ×2 (09:25→22:00)
[2020-02-18] MEDS: fentaNYL Drip 2500mCg/250mlNS 250 ML IV SCH ×2 (09:32→22:00)
[2020-02-18] MEDS: INSULIN LANTUS (GLARGINE) 1 /0.01ml (100units/ml) SC SCH ×2 (10:00→22:00)
[2020-02-18] MEDS: Glucerna 1.2 Cal 1Liter BOTTLE GT SCH (19:00)
[2020-02-18] MEDS: PROPOFOL 100 ML IV SCH (22:00)
[2020-02-19] VITALS (95 sets, daily range): BP systolic 76–122; BP diastolic 43–81
[2020-02-19] MEDS: ACCU-CHEK COMFORT CURVE STRIP VI SCH ×4 (00:06→17:30)
[2020-02-19] MEDS: PIPERACILLIN-TAZOB 3.375GM 100 ML IV SCH ×4 (00:06→18:34)
[2020-02-19] MEDS: InsuLIN REG 1unit/0.01ml Soln (100units/ml) SC SCH ×4 (00:07→18:33)
[2020-02-19] MEDS: MIDAZOLAM DRIP 50 mg/50mL 50 ML IV SCH ×5 (03:15→23:00)
[2020-02-19] MEDS: VANCOMYCIN 1GM/250ML 250 ML IV SCH (05:00)
[2020-02-19] MEDS: METOCLOPRAMIDE HCL 5MG/ml INJ 2ml VIAL IV SCH ×3 (05:42→22:13)
[2020-02-19] MEDS: BUDESONIDE (INHALATION) 0.5 MG/2 ML NEB NEB SCH ×2 (07:12→22:00)
[2020-02-19] MEDS: ALBUTEROL SULF 2.5 MG/0.5ML(0.5%) NEB SOLN NEB SCH ×3 (07:12→22:00)
[2020-02-19] MEDS: IPRATROPIUM BROM 0.5 MG/2.5ML INH SOL NEB SCH ×3 (07:12→23:01)
[2020-02-19 09:37] LABS: Albumin 3.3 g/dL (3.4-5.0); BUN/Creatinine Ratio 17.8; Calcium 8.6 mg/dL (8.5-10.1); Potassium 4.2 mmol/L (3.5-5.1)
[2020-02-19 09:39] LABS: Bilirubin, Total 0.5 mg/dL (0.2-1.0); Total Protein 6.7 g/dL (6.4-8.2)
[2020-02-19 09:41] LABS: Basophils # (auto) 0 10 ^3/uL (0-0.2); Basophils % (auto) 0.2 % (0.0-2.0); Eosinophils # (auto) 0 10 ^3/uL (0-0.8); Hematocrit 38.5 % (36.0-46.0); Lymphocytes % (auto) 6.5 % (10.0-50.0); Mean Corpuscular Hgb Conc. 31.1 g/dL (32.0-36.0); Mean Corpuscular Volume 93.1 fL (80.0-100.0); Monocytes # (auto) 1.1 10 ^3/uL (0-1.3); Monocytes % (auto) 7.3 % (0.0-12.0); Neutrophils # (auto) 12.8 10 ^3/uL (1.6-8.6); Platelet Count (auto) 392 10^3/uL (140-450); Red Blood Cells 4.14 10^6/uL (4.0-5.20); Red Cell Distribution Width 13.6 % (11.8-14.3); White Blood Cell 14.9 10^3/uL (4.4-10.8)
[2020-02-19] MEDS: CHOLECALCIFEROL (VITD3) 2,000 UNIT CAP/TAB PO SCH (09:49)
[2020-02-19] MEDS: INSULIN LANTUS (GLARGINE) 1 /0.01ml (100units/ml) SC SCH ×2 (09:49→22:13)
[2020-02-19] MEDS: ENOXAPARIN SOD 60 MG/0.6 ML SYRINGE SC SCH ×2 (09:50→22:13)
[2020-02-19] MEDS: PANTOPRAZOLE 40 MG/10 ML VIAL INJ IV SCH (09:50)
[2020-02-19] MEDS: fentaNYL Drip 2500mCg/250mlNS 250 ML IV SCH ×2 (10:11→23:23)
[2020-02-19] MEDS: PROPOFOL 100 ML IV SCH (13:18)
[2020-02-19] MEDS ORDERED: VANCOMYCIN 1GM/250ML 250 ML IV SCH (17:00)
[2020-02-19] MEDS: NOREPINEPHRINE 8 MG/250ML KIT 250 ML IV SCH (20:00)
[2020-02-19] MEDS: Glucerna 1.2 Cal 1Liter BOTTLE GT SCH (22:00)
[2020-02-19] MEDS: ACETAMINOPHEN 325 MG TAB PO PRN (22:15)
[2020-02-20] VITALS (71 sets, daily range): BP systolic 75–127; BP diastolic 44–83
[2020-02-20] MEDS: PROPOFOL 100 ML IV SCH (01:27)
[2020-02-20] MEDS ORDERED: SODIUM CHLORIDE 0.9% 500 ML IV ONE (01:30)
[2020-02-20] MEDS: MIDAZOLAM DRIP 50 mg/50mL 50 ML IV SCH ×3 (01:46→13:05)
[2020-02-20 05:28] LABS: Basophils # (auto) 0 10 ^3/uL (0-0.2); Basophils % (auto) 0.1 % (0.0-2.0); Eosinophils # (auto) 0.5 10 ^3/uL (0-0.8); Eosinophils % (auto) 4.4 % (0.0-7.0); Hematocrit 37.4 % (36.0-46.0); Hemoglobin 11.9 g/dL (12.2-16.2); Lymphocytes # (auto) 2.3 10 ^3/uL (0.4-5.4); Mean Corpuscular Hemoglobin 29.4 pg (28.0-32.0); Mean Corpuscular Hgb Conc. 31.9 g/dL (32.0-36.0); Mean Corpuscular Volume 92.1 fL (80.0-100.0); Monocytes # (auto) 0.7 10 ^3/uL (0-1.3); Monocytes % (auto) 5.8 % (0.0-12.0); Neutrophils # (auto) 8.6 10 ^3/uL (1.6-8.6); Neutrophils % (auto) 70.7 % (37.0-80.0); Platelet Count (auto) 342 10^3/uL (140-450); Red Blood Cells 4.06 10^6/uL (4.0-5.20); Red Cell Distribution Width 13.3 % (11.8-14.3); White Blood Cell 12.2 10^3/uL (4.4-10.8)
[2020-02-20 05:41] LABS: Albumin 2.8 g/dL (3.4-5.0); BUN/Creatinine Ratio 22.5; Calcium 7.8 mg/dL (8.5-10.1); Potassium 3.8 mmol/L (3.5-5.1)
[2020-02-20 05:44] LABS: Bilirubin, Total 0.4 mg/dL (0.2-1.0)
[2020-02-20] MEDS: InsuLIN REG 1unit/0.01ml Soln (100units/ml) SC SCH ×4 (06:00→18:09)
[2020-02-20] MEDS: PIPERACILLIN-TAZOB 3.375GM 100 ML IV SCH ×4 (06:03→18:11)
[2020-02-20] MEDS: METOCLOPRAMIDE HCL 5MG/ml INJ 2ml VIAL IV SCH ×2 (06:03→14:19)
[2020-02-20] MEDS: ACCU-CHEK COMFORT CURVE STRIP VI SCH ×4 (06:04→18:00)
[2020-02-20] MEDS: BUDESONIDE (INHALATION) 0.5 MG/2 ML NEB NEB SCH ×2 (08:30→18:05)
[2020-02-20] MEDS: IPRATROPIUM BROM 0.5 MG/2.5ML INH SOL NEB SCH ×3 (08:30→18:05)
[2020-02-20] MEDS: NOREPINEPHRINE 8 MG/250ML KIT 250 ML IV SCH (09:45)
[2020-02-20] MEDS: ENOXAPARIN SOD 60 MG/0.6 ML SYRINGE SC SCH (10:17)
[2020-02-20] MEDS: PANTOPRAZOLE 40 MG/10 ML VIAL INJ IV SCH (10:17)
[2020-02-20] MEDS: CHOLECALCIFEROL (VITD3) 2,000 UNIT CAP/TAB PO SCH (10:18)
[2020-02-20] MEDS: INSULIN LANTUS (GLARGINE) 1 /0.01ml (100units/ml) SC SCH (10:18)
[2020-02-20] MEDS ORDERED: VANCOMYCIN 1GM/250ML 250 ML IV SCH (11:00)
[2020-02-20] MEDS ORDERED: ATRACURIUM BESYLATE 1,000 MG in D5W 5% 150 ML IV SCH (11:00)
[2020-02-20] MEDS ORDERED: SODIUM CHLORIDE 0.9% 250 ML IV ONE (11:15)
[2020-02-20] MEDS: fentaNYL Drip 2500mCg/250mlNS 250 ML IV SCH (11:26)
[2020-02-20] MEDS: ACETAMINOPHEN 325 MG TAB PO PRN (12:09)
[2020-02-20] MEDS ORDERED: PHENYLEPHRINE IV 250 ML IV SCH (14:15)
[2020-02-20] MEDS ORDERED: EPINEPHrine HCL 250 ML IV ONE (20:39)
[2020-02-20] MEDS ORDERED: INSULIN LANTUS (GLARGINE) 1 /0.01ml (100units/ml) SC SCH (22:00)
[2020-02-21] MEDS ORDERED: EPINEPHrine HCL 1 MG/10 ML SYRG IV ONE (01:45)
[2020-02-21] MEDS ORDERED: SODIUM BICARBONATE 8.4% INJ 50ML SYRINGE IV ONE (01:45)
== END 2020-02-21 01:46 | DRG 720 ==
LOC: ER 17:13 → TELE 17:14 → TELE-EAST 02-03 23:21 → ICU WEST 02-17 12:36
PROVIDERS: ADMIT Nurse Practitioner; ATTEND Internal Medicine
PROC: XW033E5 Introduction of Remdesivir Anti-infective into Peripheral Vein, Percutaneous Approach, New Technology Group 5 (ICD-10-PCS; principal; 2020-02-08)
PROC: XW13325 Transfusion of Convalescent Plasma (Nonautologous) into Peripheral Vein, Percutaneous Approach, New Technology Group 5 (ICD-10-PCS; 2020-02-08)
PROC: 5A1945Z Respiratory Ventilation, 24-96 Consecutive Hours (ICD-10-PCS; 2020-02-17)
PROC: 02HV33Z Insertion of Infusion Device into Superior Vena Cava, Percutaneous Approach (ICD-10-PCS; 2020-02-17)
PROC: XW033H5 Introduction of Tocilizumab into Peripheral Vein, Percutaneous Approach, New Technology Group 5 (ICD-10-PCS; 2020-02-17)
PROC: 5A12012 Performance of Cardiac Output, Single, Manual (ICD-10-PCS; 2020-02-19)
DX: A41.89 Other specified sepsis (principal); U07.1 COVID-19; J12.89 Other viral pneumonia; J96.01 Acute respiratory failure with hypoxia; E44.1 Mild protein-calorie malnutrition; N39.0 Urinary tract infection, site not specified; E11.65 Type 2 diabetes mellitus with hyperglycemia; E66.01 Morbid (severe) obesity due to excess calories; R65.20 Severe sepsis without septic shock; R74.01 Elevation of levels of liver transaminase levels; F41.9 Anxiety disorder, unspecified; Z68.26 Body mass index [BMI] 26.0-26.9, adult; Z79.899 Other long term (current) drug therapy; I46.9 Cardiac arrest, cause unspecified; J93.9 Pneumothorax, unspecified; J98.2 Interstitial emphysema
CPT/HCPCS: 36415; 36600; 71045; 71275; 74018; 80048; 80053; 80202; 81001; 82728; 82805; 82962; 83036; 83605; 83615; 83735; 84439; 84443; 84481; 84484; 85025; 85379; 85610; 85730; 86141; 86850; 86900; 86901; 87040; 87070; 87086; 87205; 93005; 93306; 94002; 94003; 94640; A4565; C9113; G0378; J0171; J0330; J0696; J1100; J1815; J1956; J2250; J2543; J2704; J3490; J7060; P9047